=== PATIENT | male | born 1975 | race Caucasian/White ===

== ENCOUNTER → 2024-04-29 | Outpatient (CLI) | payer OTHER ==
--- NOTE | 2024-04-29 09:42 | US ---
EXAMINATION TYPE: US abdomen limited DATE OF EXAM: 04/29/2024 COMPARISON: NONE CLINICAL INDICATION: Male, 49 years old with history of R10.9 UNSPECIFIED ABDOMINAL PAIN; RUQ pain an d after eating TECHNIQUE: Grayscale and color Doppler imaging of the right upper quadrant was performed. FINDINGS: EXAM MEASUREMENTS: Liver Length: 17.0 cm Gallbladder Wall: 0.2 cm CBD: 0.5 cm Right Kidney: 11.0 x 5.7 x 6.3 cm Pancreas: wnl Liver: wnl Gallbladder: wnl Evidence for sonographic Sanon's sign: no CBD: wnl Right Kidney: wnl IMPRESSION: No gallstones. No acute findings. [facility], , 04/29/2024 9:40 AM
== END | disposition home or self-care (01) ==
LOC: RADUSWWP 08:18
PROVIDERS: ATTEND Internal Medicine Geriatric Medicine
DX: R10.9 Unspecified abdominal pain (principal)
CPT/HCPCS: 76705

== ENCOUNTER → 2024-05-17 | Outpatient (CLI) | payer OTHER ==
--- NOTE | 2024-05-17 09:40 | NM ---
EXAMINATION TYPE: NM hepatobiliary w EF DATE OF EXAM: 05/17/2024 9:31 AM COMPARISON: 04/21/2024 CLINICAL INDICATION:Male, 49 years old with history of R10.9 UNSPECIFIED ABDOMINAL PAIN; TECHNIQUE: The patient was given 5.21 mCi of Technetium 99m-Mebrofenin as a radiotracer and multiple scintigraphic images were obtained of the abdomen. Gallbladder function was also assessed after the administration of ensure drink and additional scintigraphic images were obtained of the abdomen. A re gion of interest was drawn over the gallbladder and a timing activity curve was generated. The gallbl adder ejection fraction was calculated. FINDINGS: Normal uptake of radiotracer was identified within the liver with excretion into the hepatic and comm on biliary ducts within 4 min. There was normal progressive washout of the liver over the course of t he study. Radiotracer uptake within the gallbladder at 8 minutes as well as small bowel activity was identified at 8 minutes. Maximum calculated gallbladder ejection fraction is: 33% at 60 minutes (Normal gallbladder ejection fraction is > 35%) IMPRESSION: 1. Normal hepatobiliary scan. 2. Borderline normal ejection fraction. An ejection fraction of <33% after 60 min is indicative of i mpaired gallbladder emptying and gallbladder dysfunction. [facility], , 05/17/2024 9:37 AM
== END | disposition home or self-care (01) ==
LOC: RADNMMAIN 06:53
PROVIDERS: ATTEND Internal Medicine Geriatric Medicine
DX: K82.8 Other specified diseases of gallbladder (principal)
CPT/HCPCS: 78226; A9537